=== PATIENT | female | born 1975 | race Caucasian/White ===

== ENCOUNTER 2017-03-25 07:34 | Emergency (ER) | payer OTHER ==
[2017-03-25 07:44] VITALS: BP 128/81
--- NOTE | 2017-03-25 07:52 | UC ---
Lower Extremity/Ankle HPI - HPI Summary HPI Summary: 41 yo female with right great toe pain after dropping a frozen 20 lb turkey on her foot. Occurred last PM - History of Current Complaint Chief Complaint: UCLowerExtremity Stated Complaint: TOE INJURY Time Seen by Provider: 03/25/17 07:46 Hx Obtained From: Patient Hx Last Menstrual Period: Summer 2016 Onset/Duration: Sudden Onset Severity Initially: Severe Severity Currently: Moderate Pain Intensity: 6 - DECLINES ANALGESIC Pain Scale Used: 0-10 Numeric Aggravating Factor(s): Standing, Ambulation Alleviating Factor(s): Rest, Elevation, Ice Able to Bear Weight: Yes - with altered gait - Allergies/Home Medications Allergies/Adverse Reactions: Allergies Allergy/AdvReac Type Severity Reaction Status Date / Time Erythromycin Allergy Rash Verified 03/25/17 07:44 Home Medications: Home Medications Lisinopril 1 tab PO DAILY 03/25/17 [History Confirmed 03/25/17] buPROPion SR TAB* [Wellbutrin SR TAB*] 1 tab PO DAILY 03/25/17 [History Confirmed 03/25/17] PMH/Surg Hx/FS Hx/Imm Hx Previously Healthy: Yes Cardiovascular History: Hypertension - Surgical History Surgical History: Yes Surgery Procedure, Year, and Place: Tubal Ligation - Family History Known Family History: Positive: Hypertension - Social History Alcohol Use: Weekly Substance Use Type: None Smoking Status (MU): Never Smoked Tobacco - Immunization History Most Recent Influenza Vaccination: Not UTD Review of Systems Constitutional: Negative Skin: Bruising Eyes: Negative ENT: Negative Respiratory: Negative Cardiovascular: Negative Gastrointestinal: Negative Genitourinary: Negative Motor: Negative Neurovascular: Negative Musculoskeletal: Arthralgia Neurological: Negative Psychological: Negative Is Patient Immunocompromised?: No All Other Systems Reviewed And Are Negative: Yes Physical Exam Triage Information Reviewed: Yes Appearance: Well-Appearing, No Pain Distress, Well-Nourished Vital Signs: Initial Vital Signs Temp 98.3 F 03/25/17 07:36 Pulse 67 03/25/17 07:36 Resp 14 03/25/17 07:36 BP 128/81 03/25/17 07:36 Pulse Ox 100 03/25/17 07:36 Vital Signs Reviewed: Yes Eyes: Positive: Conjunctiva Clear ENT: Positive: Hearing grossly normal, Uvula midline. Negative: Nasal congestion, Nasal drainage, Tonsillar swelling, Tonsillar exudate Neck: Positive: Supple, Nontender Respiratory: Positive: Lungs clear, Normal breath sounds, No respiratory distress Cardiovascular: Positive: RRR, No Murmur Musculoskeletal: Positive: ROM Limited @, Edema @ Neurological: Positive: Alert Skin Exam: Normal Lower Extremity Course/Dx - Differential Dx/Diagnosis Provider Diagnoses: rught great toe fracture (distal phalanx chip fracture involving the base) Discharge - Discharge Plan Condition: Stable Disposition: HOME Referrals: Gasper Canales SPINE SURGEON [Primary Care Provider] - Images Feet (Multiple View): 1 - tender/ecchymotic, no subungual hematoma
--- NOTE | 2017-03-25 08:18 | RAD ---
HISTORY: Right great toe injury COMPARISONS: None VIEWS: 3, Frontal, lateral, and oblique views of the first digit of the right foot FINDINGS: BONE DENSITY: Normal. BONES: There is a nondisplaced fracture of the lateral aspect of the base of the distal phalanx of the first digit JOINTS: There is no arthropathy. ALIGNMENT: There is no dislocation. SOFT TISSUES: Unremarkable. OTHER FINDINGS: None. IMPRESSION: NONDISPLACED FRACTURE OF THE BASE OF THE DISTAL PHALANX OF THE FIRST DIGIT
== END 2017-03-25 08:32 | disposition home or self-care (01) ==
LOC: UCEAST 07:34
DX: S92.424A Nondisplaced fracture of distal phalanx of right great toe, initial encounter for closed fracture (principal); W20.8XXA Other cause of strike by thrown, projected or falling object, initial encounter; Y93.9 Activity, unspecified; Y92.9 Unspecified place or not applicable; Y99.9 Unspecified external cause status; I10 Essential (primary) hypertension
CPT/HCPCS: 99212; G0463